=== PATIENT | male | born 1980 | race Two or more races ===

== ENCOUNTER 2024-01-30 08:52 | Inpatient (IN) | payer MEDICAID ==
[~2024-01-30] VITALS: Ht 172.7 cm; Wt 79.9 kg
[2024-01-30] MEDS: IV NS 0.9% 1,000 ML BAG IV ONE (09:00)
[2024-01-30 09:26] LABS: BASOPHILS % (AUTO) 0.3 % (0.0-2.0); EOSINOPHILS # (AUTO) 0.2 K/uL (0.0-0.7); EOSINOPHILS % (AUTO) 3.1 % (0.0-6.0); HEMATOCRIT 33 % (39-51); LYMPHOCYTES # (AUTO) 1.2 K/uL (0.8-4.8); MEAN CORPUSCULAR HEMOGLOBIN 32 PG (26.0-33.0); MEAN CORPUSCULAR HGB CONC 34 g/dl (31.0-36.0); MEAN CORPUSCULAR VOLUME 97 fL (80-96); MONOCYTES # (AUTO) 0.4 K/uL (0.1-1.30); MONOCYTES % (AUTO) 5.6 % (2.0-12.0); PLATELET COUNT (AUTO) 92 K/uL (150-450); RED BLOOD CELL COUNT(AUTO) 3.39 MIL/uL (4.5-6.0); RED CELL DISTRIBUTION WIDTH 14.2 % (11.5-15.0); WHITE BLOOD COUNT (AUTO) 7.9 K/uL (4.3-11.0)
[2024-01-30 09:28] LABS: CALCIUM, SERUM 8.3 mg/dL (8.5-10.1); CARBON DIOXIDE 22 mmol/L (21-32); CHLORIDE 97 mmol/L (98-107); CREATININE 0.9 mg/dL (0.6-1.3); GLUCOSE 184 mg/dL (74-106); POTASSIUM 3.1 mmol/L (3.5-5.1); SODIUM SERUM 134 mmol/L (136-145); UREA NITROGEN, BLOOD 6 mg/dL (7-18)
[2024-01-30 09:34] LABS: ALANINE AMINOTRANSFERASE 52 U/L (12-78); ALBUMIN 2.9 g/dL (3.4-5.0); ALCOHOL, BLOOD < 3 mg/dL (0-10); ALKALINE PHOSPHATASE 266 U/L (46-116); ASPARTATE AMINOTRANSFERASE 165 U/L (15-37); BILIRUBIN,DIRECT 1.6 mg/dL (0.0-0.2); BILIRUBIN,TOTAL 3.5 mg/dL (0.2-1.0); INR 1.4 (0.91-1.10); PARTIAL THROMBOPLASTIN TIME 29.9 SEC (24.3-34.3); PROTHROMBIN TIME 14.5 SECS (9.2-11.1); TOTAL PROTEIN, SERUM 9.2 g/dL (6.4-8.2)
[2024-01-30] MEDS: LORAZEPAM INJ 2 MG/ML VIAL IV ONE (10:00)
[2024-01-30] MEDS ORDERED: LORAZEPAM INJ 2 MG/ML VIAL ONE (10:28)
[2024-01-30 11:21] LABS: APPEARANCE,URINE SLIGHTLY CLOUDY (CLEAR); BILIRUBIN,URINE 2+ (NEGATIVE); BLOOD, URINE NEGATIVE Ery/uL (NEGATIVE); COLOR,URINE DARK YELLOW (YELLOW); KETONES,URINE 1+ mg/dL (NEGATIVE); LEUKOCYTE ESTERASE ,URINE NEGATIVE (NEGATIVE); NITRITE, URINE POSITIVE (NEGATIVE); PROTEIN,URINE 3+ mg/dl (NEGATIVE); UGLUCOSE TRACE mg/dL (NEGATIVE)
[2024-01-30 11:36] LABS: ADD URINE CULTURE YES; BACTERIA,URINE Moderate /HPF (None Seen); RBC,URINE 0-2 /HPF (0-2); SQUAMOUS EPITHELIAL CELL,UR Rare /HPF (None Seen)
[2024-01-30 11:38] LABS: AMPHETAMINE, URINE NEGATIVE (NEGATIVE); BARBITURATE, URINE NEGATIVE (NEGATIVE); BENZODIAZEPINE, URINE NEGATIVE (NEGATIVE); CANNABINOID, URINE NEGATIVE (NEGATIVE); COCCAINE, URINE NEGATIVE (NEGATIVE); OPIATE, URINE NEGATIVE (NEGATIVE); PHENCYCLIDINE SCREEN,URINE NEGATIVE (NEGATIVE)
[2024-01-30 12:06] LABS: MAGNESIUM 1.4 mg/dL (1.8-2.4)
[2024-01-30 12:22] LABS: ANISOCYTOSIS 1+; BASOPHILS % (MANUAL) 0 % (0.0-2.0); EOSINOPHILS % (MANUAL) 2 % (0-4); LYMPHOCYTES % (MANUAL) 13 % (16-48); MONOCYTES % (MANUAL) 5 % (0-11.0); NEUTROPHILS % (MANUAL) 80 (42-76); PLATELET ESTIMATE DECREASED
[2024-01-30] MEDS ORDERED: ONDANSETRON HCL/PF 4 MG/2 ML VIAL IVP PRN (13:00)
[2024-01-30] MEDS ORDERED: MAGNESIUM HYDROXIDE 30 ML UDC PO PRN (13:00)
[2024-01-30] MEDS ORDERED: ACETAMINOPHEN 325 MG TABLET PO PRN (13:00)
[2024-01-30] MEDS ORDERED: LORAZEPAM INJ 2 MG/ML VIAL IV PRN (13:00)
[2024-01-30] MEDS ORDERED: Z GUARD REMEDY 4 OZ OINT TP PRN (13:00)
[2024-01-30] MEDS ORDERED: HYDROCODONE/APAP 5/325MG TABLET PO PRN (13:00)
[2024-01-30] MEDS: Thiamine 100 MG in IV D5W 50 ML IV SCH (14:41)
[2024-01-30] MEDS: IV NS 0.9% 1,000 ML IV PRN (14:41)
[2024-01-30] MEDS: CALCIUM CARBONATE 500 MG TAB.CHEW PO ONE (14:42)
[2024-01-30] MEDS: POTASSIUM CHLORIDE 20 MEQ TAB.PRT.SR PO ONE (14:42)
[2024-01-30] MEDS: FOLIC ACID 1 MG TABLET PO ONE (14:43)
[2024-01-30] MEDS: NICOTINE PATCH (14MG) 14 MG PATCH.TD24 TD SCH (15:00)
[2024-01-30] MEDS: Magnesium 1GM/D5W 100ML PREMIX 100 ML IV SCH (15:35)
[2024-01-30 16:00] VITALS: BP 149/84; TEMP 98.3; O2SAT 98
[2024-01-30] MEDS: PREGABALIN 25 MG CAPSULE PO SCH (16:21)
[2024-01-30 20:00] VITALS: BP 132/82; TEMP 98.8; O2SAT 97
[2024-01-30] MEDS: ENOXAPARIN SODIUM 40 MG/0.4 ML DISP.SYRIN SQ SCH (20:29)
[2024-01-31] VITALS: BP 133/78; TEMP 99.1; O2SAT 98
[2024-01-31 04:00] VITALS: BP 125/70; TEMP 99.2; O2SAT 98
[2024-01-31 07:26] LABS: BASOPHILS % (AUTO) 0.3 % (0.0-2.0); EOSINOPHILS # (AUTO) 0.4 K/uL (0.0-0.7); EOSINOPHILS % (AUTO) 5.7 % (0.0-6.0); HEMATOCRIT 31 % (39-51); HEMOGLOBIN 10.5 g/dL (13.5-17.5); LYMPHOCYTES # (AUTO) 1.2 K/uL (0.8-4.8); LYMPHOCYTES % (AUTO) 15.9 % (20.0-44.0); MEAN CORPUSCULAR HEMOGLOBIN 33 PG (26.0-33.0); MEAN CORPUSCULAR HGB CONC 34 g/dl (31.0-36.0); MEAN CORPUSCULAR VOLUME 97 fL (80-96); MONOCYTES # (AUTO) 0.5 K/uL (0.1-1.30); MONOCYTES % (AUTO) 6.3 % (2.0-12.0); NEUTROPHILS # (AUTO) 5.3 K/uL (1.8-8.9); NEUTROPHILS % (AUTO) 71.8 % (43.0-81.0); PLATELET COUNT (AUTO) 86 K/uL (150-450); RED BLOOD CELL COUNT(AUTO) 3.22 MIL/uL (4.5-6.0); RED CELL DISTRIBUTION WIDTH 14.1 % (11.5-15.0); WHITE BLOOD COUNT (AUTO) 7.3 K/uL (4.3-11.0)
[2024-01-31 08:00] VITALS: BP 119/78; TEMP 98.8; O2SAT 98
[2024-01-31 08:38] LABS: CALCIUM, SERUM 8.7 mg/dL (8.5-10.1); CREATININE 0.6 mg/dL (0.6-1.3); MAGNESIUM 1.8 mg/dL (1.8-2.4); POTASSIUM 3.7 mmol/L (3.5-5.1)
[2024-01-31] MEDS: PANTOPRAZOLE 40 MG TABLET.DR PO SCH (10:10)
[2024-01-31] MEDS: FOLIC ACID 1 MG TABLET PO SCH (10:10)
[2024-01-31] MEDS: THIAMINE HCL 100 MG TABLET PO SCH (10:13)
[2024-01-31] MEDS: CHLORDIAZEPOXIDE HCL 25 MG CAPSULE PO SCH (10:14)
[2024-01-31 11:34] LABS: ANISOCYTOSIS 1+; BASOPHILS % (MANUAL) 0 % (0.0-2.0); EOSINOPHILS % (MANUAL) 6 % (0-4); LYMPHOCYTES % (MANUAL) 12 % (16-48); MONOCYTES % (MANUAL) 9 % (0-11.0); NEUTROPHILS % (MANUAL) 73 (42-76); PLATELET ESTIMATE DECREASED
[2024-01-31 12:00] VITALS: BP 131/72; TEMP 98.2; O2SAT 99
[2024-01-31] MEDS ORDERED: ATOR20TA PO (13:22)
[2024-01-31] MEDS ORDERED: FOLI0.8C PO (13:24)
[2024-01-31] MEDS ORDERED: THIA100T88 PO (13:24)
[2024-01-31 15:27] LABS: URINE SODIUM, RANDOM 32 mmol/l (40-220)
[2024-01-31] MEDS: K PHOS NEUTRAL 250 MG TABLET PO ONE (15:36)
[2024-01-31 16:11] VITALS: BP 118/74; TEMP 98.1; O2SAT 94
[2024-02-02 15:27] LABS: OSMOLALITY,URINE 294 mOS/kg (340-1090)
== END 2024-01-31 18:18 | disposition home or self-care (01) | DRG 53 ==
LOC: ER 08:55 → TELE 13:28
PROVIDERS: ADMIT Nurse Practitioner Family; ATTEND Nurse Practitioner Family
DX: R56.9 Unspecified convulsions (principal); D69.6 Thrombocytopenia, unspecified; E44.0 Moderate protein-calorie malnutrition; K74.60 Unspecified cirrhosis of liver; E87.1 Hypo-osmolality and hyponatremia; E83.39 Other disorders of phosphorus metabolism; E83.51 Hypocalcemia; E88.09 Other disorders of plasma-protein metabolism, not elsewhere classified; E11.9 Type 2 diabetes mellitus without complications; D64.9 Anemia, unspecified; E87.6 Hypokalemia; E80.6 Other disorders of bilirubin metabolism; F10.139 Alcohol abuse with withdrawal, unspecified; F17.210 Nicotine dependence, cigarettes, uncomplicated; Y90.0 Blood alcohol level of less than 20 mg/100 ml; E83.42 Hypomagnesemia; G89.29 Other chronic pain
CPT/HCPCS: 36415; 70450-TC; 71045-TC; 76700-TC; 80048-TC; 80061-TC; 80076-TC; 81001; 82140-TC; 82550-TC; 82607-TC; 82728-TC; 82962-TC; 83540-TC; 83735-TC; 83935-TC; 84100-TC; 84300-TC; 85025-TC; 85730-TC; 87086-TC; A4223; G0378; G0480; J1650; J2060; J3411; J3475; J7030; J7060